=== PATIENT | female | born 1990 | race African-American/Black ===

== ENCOUNTER 2023-01-12 12:09 | Emergency (ER) | payer SELFPAY ==
[2023-01-12] MEDS ORDERED: Acetaminophen 500 MG TAB ONE (13:42)
[2023-01-12] MEDS ORDERED: Ondansetron ODT 4 MG TAB ONE (13:42)
[2023-01-12 13:55] LABS: Bacteria/HPF None Seen HPF (None Seen); Bilirubin Negative (Negative); Blood, Urine Negative (Negative); CAUTI Indications for Culture Pelvic or flank pain; Clarity Clear (Clear); Glucose, Urine (Dipstick) Normal (Negative); Ketone, Urine Negative (Negative); Leukocyte Negative Leu/uL (Negative); Nitrite Negative (Negative); Protein, Urine (Dipstick) 10 mg/dL (Neg-Trace); RBC/HPF 0-3 HPF (0-3); Urobilinogen Normal mg/dL (Less than 2); WBC/HPF 0-3 HPF (0-3)
[2023-01-12 13:58] LABS: Urine Culture Reflex No No
[2023-01-12 13:59] LABS: #Eosinphils 0.1 thou/uL (0.0-0.7); #Monocytes 0.5 thou/uL (0.11-0.59); #Neutrophils 4.3 thou/uL (1.40-6.50); %Basophils 0.4 % (0.0-1.0); %Eosinophils 1.5 % (0.0-10.0); %Lymphocytes 30.2 % (21.0-51.0); %Monocytes 7.2 % (0.0-10.0); %Neutrophils 60.4 % (42.0-75.0); Hematocrit 36.8 % (36.0-47.0); Hemoglobin 11.8 g/dL (12.0-16.0); Mean Corpuscular HGB CONC 32.1 g/dL (32.0-36.0); Mean Corpuscular Hemoglobin 29.8 pg (27.0-31.0); Mean Corpuscular Volume 92.9 fl (78.0-98.0); Mean Platelet Volume 8.4 fL (7.4-10.4); Platelet Count 339 10x3/uL (130-400); RBC Distribution Width 13.1 % (11.5-14.5); Red Blood Cell (RBC) Count 3.96 mill/uL (4.20-5.40); White Blood Cell (WBC) Count 7.1 10x3/uL (4.8-10.8)
[2023-01-12 14:29] LABS: BHCG - Serum POSITIVE (NEGATIVE); Pregs Control Background? CLEAR/WHITE (CLR/WHITE); Pregs Control Bar Appear? YES (CONTROL BAR)
[2023-01-12 14:33] LABS: Anion Gap 12 mmol/L (10-20); BUN (Urea Nitrogen) 11 mg/dL (7.0-18.7); Calc. Creatinine Clearance 0 mL/min (70-130); Carbon Dioxide 23 mmol/L (22-29); Chloride 102 mmol/L (98-107); Estimated GFR 104; Glucose 90 mg/dL (70-105); Potassium 3.9 mmol/L (3.5-5.1); Sodium 133 mmol/L (136-145)
[2023-01-12 14:34] LABS: ALT (SGPT) 10 U/L (8-55); AST (SGOT) 14 U/L (5-34); Alkaline Phosphatase 51 U/L (40-110); Bilirubin, Total 0.3 mg/dL (0.2-1.2); Calcium 9.5 mg/dL (7.6-10.4); Globulin 3.6 g/dL (2.4-3.5); Lipase 6 U/L (8-78); Protein, Total 7.6 g/dL (6.0-8.3)
== END 2023-01-12 15:52 | disposition home or self-care (01) ==
LOC: ERS 12:09
DX: O99.891 Other specified diseases and conditions complicating pregnancy (principal); R10.32 Left lower quadrant pain; O99.331 Smoking (tobacco) complicating pregnancy, first trimester; F17.210 Nicotine dependence, cigarettes, uncomplicated; Z3A.01 Less than 8 weeks gestation of pregnancy
CPT/HCPCS: 76856; 80053; 81001; 83690; 84702; 84703; 85025; Q0162

== ENCOUNTER 2024-03-12 00:35 | Emergency (ER) | payer BC, OTHER ==
[2024-03-12] MEDS ORDERED: Boostrix 0.5 ML (Tdap) VIAL (>/=7 yrs of age) ONE (01:20)
== END 2024-03-12 01:57 | disposition home or self-care (01) ==
LOC: ERS 00:35
DX: T33.531A Superficial frostbite of right finger(s), initial encounter (principal); S61.232A Puncture wound without foreign body of right middle finger without damage to nail, initial encounter; I10 Essential (primary) hypertension; F17.210 Nicotine dependence, cigarettes, uncomplicated; X58.XXXA Exposure to other specified factors, initial encounter
CPT/HCPCS: 90471; 90715

== ENCOUNTER 2024-04-17 09:17 | Emergency (ER) | payer BC, OTHER ==
[2024-04-17] MEDS ORDERED: Dexamethasone 10 MG/ML VIAL ONE (10:28)
== END 2024-04-17 11:23 | disposition home or self-care (01) ==
LOC: ERS 09:17
DX: B34.9 Viral infection, unspecified (principal); I10 Essential (primary) hypertension; F17.210 Nicotine dependence, cigarettes, uncomplicated
CPT/HCPCS: 71045; 87428; J1100

== ENCOUNTER 2024-05-01 11:40 | Emergency (ER) | payer BC ==
[2024-05-01] MEDS ORDERED: Ibuprofen 800 MG TAB ONE (13:41)
== END 2024-05-01 15:03 | disposition home or self-care (01) ==
LOC: ERS 11:40
DX: N61.1 Abscess of the breast and nipple (principal); N61.0 Mastitis without abscess; I10 Essential (primary) hypertension; F17.210 Nicotine dependence, cigarettes, uncomplicated